=== PATIENT | male | born 1955 | race Caucasian/White ===

== ENCOUNTER 2023-01-30 05:29 | Day surgery (SDC) | payer MEDICARE ==
[~2023-01-30] VITALS: Ht 182.9 cm; Wt 81.6 kg
[2023-01-30 06:21] VITALS: BP 133/64; PULSE 55; TEMP 98.1
[2023-01-30] MEDS ORDERED: LUTEIN20 M1 PO (06:27)
[2023-01-30] MEDS ORDERED: [UNRECOGNIZED DRUG - OTHER] PO (06:28)
[2023-01-30] MEDS ORDERED: VITAMINC1000TA PO (06:28)
[2023-01-30] MEDS ORDERED: PHARMASSURE ZIN50 MG PO (06:29)
[2023-01-30] MEDS ORDERED: VITAMIND3 5000 PO (06:29)
[2023-01-30] MEDS ORDERED: B COMPLEX #11 TA1 PO (06:30)
[2023-01-30] MEDS ORDERED: BLACK SEED OIL PO (06:31)
[2023-01-30] MEDS ORDERED: [UNRECOGNIZED DRUG - OTHER] PO (06:32)
[2023-01-30] MEDS ORDERED: TURMERIC-TAMAR250 MG PO (06:32)
[2023-01-30] MEDS ORDERED: [UNRECOGNIZED DRUG - OTHER] PO (06:33)
[2023-01-30] MEDS ORDERED: NORCO 325 MG-51 TAB PO (09:16)
[2023-01-30 09:55] VITALS: BP 113/59; PULSE 60; TEMP 97.6
[2023-01-30 10:10] VITALS: BP 113/48; PULSE 56
[2023-01-30 10:25] VITALS: BP 112/43; PULSE 62
[2023-01-30 10:40] VITALS: BP 116/56; PULSE 60
--- NOTE | 2023-01-30 10:55 | NUR ---
0955 RETURNS TO ROOM 2 PER CART. AWAKE, ALERT. HOB ELEVATED 30 DEGREES. RESP UNLABORED. COUGHS AND DEEP BREATHES WELL ON REQUEST. O2 OFF. EXPRESSES COMFORT. ABD SOFT. INCISION X 3 SITES WITHOT REDNESS OR DRAINAGE. CALL LIGHT AT SIDE. IN ROOM. 1010 TOLERATES PO JUICE WITHOUT NAUSEA. REFUSES SNACK AT THIS TIME. 1025 AWAKE, ALERT. REPOSITIONS ON CART. HOB ELEVATED 70 DEGREES. 1040 DISCHARGE INSTRUCTIONS REVIEWED WITH PATIENT AND VERBALIZING UNDERSTANDING. COPY PROVIDED IN DISCHARGE FOLDER. 1045 SITS ON EDGE OF BED. DRESSES SELF
== END 2023-01-30 10:58 | disposition home or self-care (01) ==
LOC: SDCO 05:29
DX: K40.20 Bilateral inguinal hernia, without obstruction or gangrene, not specified as recurrent (principal)
CPT/HCPCS: C1781; J0690; J1100; J2405; J3010; J7120